=== PATIENT | male | born 1930 | race Caucasian/White ===

== ENCOUNTER → 2016-06-07 | Outpatient (CLI) | payer MEDICARE ==
[~2016-06-07] MED LIST: AUGM875T PO; BAYE325T; BAYE325T3 PO; CARV6.252 PO; CHOL1CHW5 CHEW; CITA20TA4 PO; CITA40TA4 PO; GLIM4TAB PO; LACTCAP8 PO; LANTUS2P SQ; LEVA500T PO; METF500T PO; NORC5TAB PO; OXYB5TAB33 PO; PROBCAP4 PO; SIMV40TA PO; SITA100 PO; SITA1TAB2 PO; VESI10TA PO; VITA200017 PO; Z.0.WALKERFRONT; ZOCO40TA PO
--- NOTE | 2016-06-07 11:07 | RADRPT ---
EXAM DATE/TIME: 06/07/2016 00:00 [facility] COMPARISON: No previous studies available for comparison. INDICATIONS : Dysphagia, aspiration FLUORO TIME: 3,0 minutes IMAGE COUNT: 0 CONTRAST: Dose as prescribed by speech pathologist. MEDICAL HISTORY : None. SURGICAL HISTORY : Pacemaker. CABG. ENCOUNTER: Initial ACUITY: 2 weeks PAIN SCORE: 0/10 LOCATION: Bilateral neck FINDINGS: A modified barium swallow was performed with speech pathology. Patient was given a variety of liquids to swallow. Normal bolus formation with slight delayed initiation of swallowing. No visualized aspiration. For a full detailed report, see report by the speech pathologist. CONCLUSION: See full speech pathologist report. No visualized aspiration.. Mariola Hodge MD on June 07, 2016 at 11:05 Board Certified Radiologist. This report was verified electronically.
== END ==
LOC: HRAD 09:51
PROVIDERS: ATTEND Family Medicine
DX: R13.10 Dysphagia, unspecified (principal)
CPT/HCPCS: 74230; G8996-GN; G8997-GN; G8998-GN

== ENCOUNTER 2016-07-27 13:15 | Emergency (ER) | payer MEDICARE ==
[~2016-07-27] VITALS: Ht 177.8 cm; Wt 79.0 kg
[~2016-07-27 13:15] MED LIST changes: -AUGM875T PO; -BAYE325T; -CHOL1CHW5 CHEW; -CITA40TA4 PO; -LACTCAP8 PO; -LANTUS2P SQ; -METF500T PO; -NORC5TAB PO; -SIMV40TA PO; -SITA1TAB2 PO; -VESI10TA PO
[2016-07-27 14:00] VITALS: BP 179/90; PULSE 70; RESP 18; TEMP 98.2; O2SAT 94
[2016-07-27] MEDS ORDERED: LACTCAP8 PO (14:07)
[2016-07-27] MEDS ORDERED: BAYE325T (14:07)
[2016-07-27] MEDS ORDERED: LANTUS2P SQ (14:07)
[2016-07-27] MEDS ORDERED: CITA40TA4 PO (14:07)
[2016-07-27] MEDS ORDERED: CHOL1CHW5 CHEW (14:07)
[2016-07-27] MEDS ORDERED: SITA1TAB2 PO (14:07)
[2016-07-27] MEDS ORDERED: CARV6.252 PO (14:07)
[2016-07-27] MEDS ORDERED: VESI10TA PO (14:07)
[2016-07-27] MEDS ORDERED: METF500T PO (14:07)
[2016-07-27] MEDS ORDERED: SIMV40TA PO (14:07)
--- NOTE | 2016-07-27 14:26 | PD ---
HPI . Facial injury Chief Complaint: Fall Time Seen by Provider: 14:20 Travel History International Travel<30 days: No Contact w/Intl Traveler<30days: No Traveled to known affect area: No History of Present Illness HPI Patient brought in by [facility] status post a trip and fall with an injury to his face. Daughter reports positive LOC. She states that he has been repeating the same questions over and over again. She states that his tetanus is up-to- date. She states that he did have epistaxis but that has resolved. She states that they found an injury to his left escobedo and they were taking his clothes off. Prior to that, he had not complained of any extremity pain. PFSH Past Medical History Asthma: No Blood Disorders: No Depression: Yes Heart Rhythm Problems: No Cancer: No Cardiovascular Problems: Yes (TRIPLE BYPASS) High Cholesterol: Yes Chest Pain: No Congestive Heart Failure: No COPD: No Cerebrovascular Accident: No Diabetes: Yes (insulin & Januvia at home) Patient Takes Glucophage: Yes Diminished Hearing: No Endocrine: Yes Gastrointestinal Disorders: No Genitourinary: Yes (urinary frequency) Hypertension: Yes Implanted Vascular Access Dvce: Yes Musculoskeletal: Yes Neurologic: Yes Psychiatric: Yes Reproductive: No Respiratory: No Seizures: Yes (an incident before ) Sleep Apnea: No Thyroid Disease: No Ulcer: No Past Surgical History Coronary Artery Bypass Graft: Yes (X3) Genitourinary Surgery: Yes (PROSTATE) Pacemaker: Yes (10/28/15) Other Surgery: Yes Social History Alcohol Use: Yes (2 GLASSES OF WINE DAILY ) Tobacco Use: No Substance Use: No Allergies-Medications (Allergen,Severity, Reaction): Coded Allergies: Cardizem (Verified Allergy, Unknown, 07/27/16) Reported Meds & Prescriptions Reported Meds & Active Scripts Active Reported Metformin (Metformin HCl) 500 Mg Tab 500 Mg PO BIDPC With meals [place] Aspirin (Aspirin) 325 Mg Tab Vitamin D3 (Cholecalciferol) 2,000 Unit Chew 2,000 Units CHEW DAILY Probiotic (Lactobacillus Acidophilus) 1 Cap Cap 1 Cap PO DAILY Simvastatin 40 Mg Tab 40 Mg PO HS Carvedilol 6.25 Mg Tab 6.25 Mg PO BID Januvia (Sitagliptin Phosphate) 100 Mg Tab 100 Mg PO DAILY Citalopram (Citalopram Hydrobromide) 40 Mg Tab 40 Mg PO DAILY Vesicare (Solifenacin) 10 Mg Tab 10 Mg PO DAILY Lantus Inj (Insulin Glargine) 1,000 Unit/10 Ml Vial 12 Units SQ HS Review of Systems Except as stated in HPI: all other systems reviewed are Neg Eyes: No: Blurred Vision HENT: No: Headaches, Lightheadedness Gastrointestinal: No: Nausea, Vomiting Musculoskeletal: No: Arthralgias, Limited ROM Skin: Positive Other (abrasion on the left escobedo. Laceration by the left thigh. ) Neurologic: No: Syncope, Focal Abnormalities Physical Exam Narrative GENERAL: Healthy-appearing older man in no acute distress. SKIN: Warm and dry. Laceration by the left eye. Abrasion on the left escobedo. HEAD: Left periorbital swelling. Normocephalic. EYES: Pupils equal and round. Extraocular movements are intact. ENT: Recent epistaxis but no active bleeding. The nose is not deformed. The nose is not tender. Mucous membranes pink and moist. NECK: Trachea midline. Neck is supple and nontender. CARDIOVASCULAR: Regular rate and rhythm. Heart sounds are normal. RESPIRATORY: No accessory muscle use. Lungs are clear with full air movement throughout. GASTROINTESTINAL: Abdomen soft, non-tender, nondistended. MUSCULOSKELETAL: No obvious deformities. No edema. NEUROLOGICAL: Awake and alert. No obvious cranial nerve deficits. Motor grossly within normal limits. Normal speech. PSYCHIATRIC: Appropriate mood and affect; insight and judgment normal. Data Data Last Documented VS Vital Signs Date Time Temp Pulse Resp B/P Pulse Ox O2 Delivery O2 Flow Rate FiO2 07/27/16 14:00 98.2 70 18 179/90 94 Orders Lidocai-Epi 1%-1:100,000 Inj (Xylocaine- (07/27/16 14:30) Ct Brain W/O Iv Contrast(Rout) (07/27/16 14:20) Ct Cerv Spine W/O Contrast (07/27/16 14:20) Ct Facial Bones W/O Iv Cont (07/27/16 14:20) Wound Care (07/27/16 14:21) MDM Medical Decision Making Medical Screen Exam Complete: Yes Emergency Medical Condition: Yes Differential Diagnosis My differential diagnosis of head trauma includes but is not limited to scalp contusion, concussion, intracerebral hemorrhage. Narrative Course Patient presents for evaluation of injury sustained in a fall. He has injuries to his face. He has symptoms consistent with concussion. Diagnosis Primary Impression: Facial bones, open fracture Qualified Code: S02.92XB - Open fracture of facial bone, unspecified facial bone, initial encounter Referrals: Jose Granger DMD 2 days Patient Instructions: Facial Fracture (DC), General Instructions Med/Other Pt SpecificInfo: Prescription(s) given Scripts Hydrocodone-Acetaminophen ([place])5-325 mg Tab1 Tab PO Q4H PRN (PAIN) #12 TAB Ref 0 Prov:Katie Sullivna MD 07/27/16 Amoxicillin-Clavulanate (Augmentin)875-125 mg Few093 Mg PO BID 10 Days Ref 0 not for use in CrCl <30 ml/min. Prov:Katie Sullivan MD 07/27/16 Disposition: 01 DISCHARGE HOME Condition: Stable Katie Sullivan MD Jul 27, 2016 14:26
[2016-07-27] MEDS ORDERED: LIDOCAINE 1%/EPINEPHrine 1:100,000 SOLN 20 ML VIAL INFIL ONE (14:30)
--- NOTE | 2016-07-27 14:38 | PD ---
Physical Exam Date Seen by Provider: Jul 27, 2016 Time Seen by Provider: 14:36 Narrative I was asked to see this patient for laceration to the left lateral eyebrow status post fall. Patient is 85, and tripped and fell on the street. Please see Dr. Guzman's note. Data Data Last Documented VS Vital Signs Date Time Temp Pulse Resp B/P Pulse Ox O2 Delivery O2 Flow Rate FiO2 07/27/16 14:00 98.2 70 18 179/90 94 Orders Lidocai-Epi 1%-1:100,000 Inj (Xylocaine- (07/27/16 14:30) Ct Brain W/O Iv Contrast(Rout) (07/27/16 14:20) Ct Cerv Spine W/O Contrast (07/27/16 14:20) Ct Facial Bones W/O Iv Cont (07/27/16 14:20) Wound Care (07/27/16 14:21) MDM Medical Record Reviewed: Yes Supervised Visit with HEIDI: Yes Differential Diagnosis Fall. Head injury. Laceration left eyebrow Procedures Procedure Narrative LACERATION LOCATION: Left lateral eyebrow. LENGTH: 4 cm NUMBER OF STITCHES/ONUR: 2 interrupted horizontal mattress REPAIR: The area of the laceration was prepped with Betadine and sterilely draped. The laceration was infiltrated with 3 mL was 1% lidocaine with epi. The wound was copiously irrigated and explored without evidence of foreign body , tendon injury or neurovascular injury. The wound was closed using 6-0 Prolene. This was a single layer repair. A sterile dressing was applied. The patient was advised to keep the dressing clean and dry. Patient tolerated the procedure well. Condition: Stable Denis Davis Jul 27, 2016 14:38
--- NOTE | 2016-07-27 14:58 | RADRPT ---
EXAM DATE/TIME: 07/27/2016 14:33 [facility] COMPARISON: CT BRAIN W/O CONTRAST, August 05, 2015, 9:41. INDICATIONS : Tripped and fell on concrete, left orbital contusion. RADIATION DOSE: 56.36 CTDIvol (mGy) MEDICAL HISTORY : Seizures. Hypertension. Diabetes SURGICAL HISTORY : CABG Pacemaker. ENCOUNTER: Initial ACUITY: 1 day PAIN SCALE: 2/10 LOCATION: cranial TECHNIQUE: Multiple contiguous axial images were obtained of the head. Using automated exposure control and adj ustment of the mA and/or kV according to patient size, radiation dose was kept as low as reasonably a chievable to obtain optimal diagnostic quality images. FINDINGS: CEREBRUM: There is mild cerebral atrophy. Mild periventricular white matter low-attenuation is present similar to the prior exam. No evidence of midline shift, mass lesion, hemorrhage or acute infarction. No ex tra-axial fluid collections are seen. POSTERIOR FOSSA: The cerebellum and brainstem demonstrate no acute finding. The 4th ventricle is midline. The cerebe llopontine angle is unremarkable. EXTRACRANIAL: There are blood products within the maxillary antra bilaterally and there are fractures of the left a nterior and posterior maxillary sinus and left zygomatic arch. Air is present within the left facial soft tissues. SKULL: The calvaria is intact. No evidence of skull fracture. CONCLUSION: 1. No acute intracranial abnormality is identified. There are stable chronic changes, as above. 2. There are fractures of the left maxillary sinus and blood products are present within the maxillar y sinuses bilaterally. Please refer to maxillofacial CT report for further description of these findi ngs. Christopher Bedoya MD on July 27, 2016 at 14:51 Board Certified Radiologist. This report was verified electronically.
--- NOTE | 2016-07-27 16:01 | RADRPT ---
EXAM DATE/TIME: 07/27/2016 14:33 [facility] COMPARISON: No previous studies available for comparison. INDICATIONS : Fell hit head on concrete,contusion left orbital contusion. RADIATION DOSE: 22.42 CTDIvol (mGy) MEDICAL HISTORY : Seizures. Hypertension. Diabetes SURGICAL HISTORY : CABG Pacemaker. ENCOUNTER: Initial ACUITY: 1 day PAIN SCALE: 2/10 LOCATION: neck TECHNIQUE: Volumetric scanning of the cervical spine was performed. Multiplanar reconstructions in the sagittal, coronal and oblique axial planes were performed. Using automated exposure control and adjustment o f the mA and/or kV according to patient size, radiation dose was kept as low as reasonably achievable to obtain optimal diagnostic quality images. FINDINGS: There is moderate degenerative disc disease and facet arthropathy. There is some ankylosis of the low er cervical spine from C4-C7. There is also at least partial fusion across the facet joints of the mi d and lower cervical spine. CONCLUSION: 1. No acute fracture. Partial ankylosis of the cervical spine. Oliver Kenny MD on July 27, 2016 at 15:53 Board Certified Radiologist. This report was verified electronically.
--- NOTE | 2016-07-27 16:08 | RADRPT ---
EXAM DATE/TIME: 07/27/2016 14:33 [facility] COMPARISON: No previous studies available for comparison. INDICATIONS : Tripped fell on concrete,left orbital contusion. RADIATION DOSE: 21.96 CTDIvol (mGy) MEDICAL HISTORY : Seizures. Hypertension. Diabetes SURGICAL HISTORY : CABG Pacemaker. ENCOUNTER: Initial ACUITY: 1 day PAIN SCORE: 2/10 LOCATION: facial TECHNIQUE: Volumetric scanning of the facial bones was performed. Using automated exposure control and adjustme nt of the mA and/or kV according to patient size, radiation dose was kept as low as reasonably achiev able to obtain optimal diagnostic quality images. FINDINGS: There are fractures through the anterior and posterior wall of the left maxillary sinus and left zygo matic arch. There is a nondisplaced orbital floor fracture with a small amount of air in the inferior left orbit. There is periorbital soft tissue swelling. Globes are intact. There is fluid and/or hemo rrhage in maxillary sinuses. No other fractures are identified. CONCLUSION: 1. Multiple fractures of the left maxillary sinus and left orbital floor with some air in the left or bit. There is also fairly extensive air in soft tissues of left face as well as left-sided facial and periorbital soft tissue swelling. Fluid present in both maxillary sinuses. 2. Left zygomatic arch fracture. Oliver Kenny MD on July 27, 2016 at 16:00 Board Certified Radiologist. This report was verified electronically.
[2016-07-27] MEDS ORDERED: AUGM875T PO (16:15)
[2016-07-27] MEDS ORDERED: NORC5TAB PO (16:15)
== END 2016-07-27 17:02 | disposition home or self-care (01) ==
LOC: NEPA 13:15
DX: S02.40DA Maxillary fracture, left side, initial encounter for closed fracture (principal); S02.40FA Zygomatic fracture, left side, initial encounter for closed fracture; S01.112A Laceration without foreign body of left eyelid and periocular area, initial encounter; I10 Essential (primary) hypertension; E11.9 Type 2 diabetes mellitus without complications; W22.8XXA Striking against or struck by other objects, initial encounter; Y92.009 Unspecified place in unspecified non-institutional (private) residence as the place of occurrence of the external cause; Z79.4 Long term (current) use of insulin
CPT/HCPCS: 12013; 70450; 70486; 72125

== ENCOUNTER → 2016-08-21 | Outpatient (CLI) | payer MEDICARE ==
[~2016-08-21] MED LIST changes: +AUGM875T PO; +BAYE325T; -BAYE325T3 PO; +CHOL1CHW5 CHEW; -CITA20TA4 PO; +CITA40TA4 PO; -GLIM4TAB PO; +LACTCAP8 PO; +LANTUS2P SQ; -LEVA500T PO; +METF500T PO; +NORC5TAB PO; -OXYB5TAB33 PO; -PROBCAP4 PO; +SIMV40TA PO; -SITA100 PO; +SITA1TAB2 PO; +VESI10TA PO; -VITA200017 PO; -Z.0.WALKERFRONT; -ZOCO40TA PO
[2016-08-21 09:43] LABS: AUTOMATED NEUTROPHIL # 6.5 TH/MM3 (1.8-7.7); BASOPHIL # 0.1 TH/MM3 (0-0.2); BASOPHIL % 0.8 % (0.0-2.0); EOSINOPHIL # 0.3 TH/MM3 (0-0.4); EOSINOPHIL % 3.2 % (0.0-4.0); HEMATOCRIT 39.6 % (39.0-51.0); HEMO FLAGS DIFF FINAL; LYMPH % 13.2 % (9.0-44.0); LYMPHOCYTE # 1.2 TH/MM3 (1.0-4.8); MEAN CELL VOLUME 84.2 FL (80.0-100.0); MEAN CORPUSCULAR HGB CONC 33.2 % (32.0-36.0); MONO % 9.6 % (0.0-8.0); NEUT % 73.2 % (16.0-70.0); PLATELET COUNT 269 TH/MM3 (150-450); RED CELL DISTRIBUTION WIDTH 14.2 % (11.6-17.2); WHITE BLOOD COUNT 8.8 TH/MM3 (4.0-11.0)
[2016-08-21 10:11] LABS: HEMOGLOBIN A1a 1.2 %; HEMOGLOBIN A1b 2.3 %; HEMOGLOBIN Ao 82.2 %; HEMOGLOBIN LA1C 1.8 %; HEMOGLOBIN P3 4.1 %
[2016-08-21 10:26] LABS: ALKALINE PHOSPHATASE 131 U/L (45-117); ALT (GPT) 22 U/L (12-78); ANION GAP 9 MEQ/L (5-15); AST (GOT) 21 U/L (15-37); BICARBONATE 27.4 MEQ/L (21.0-32.0); BLOOD UREA NITROGEN 13 MG/DL (7-18); CHLORIDE 104 MEQ/L (98-107); GLOMERULAR FILTRATION RATE 94 ML/MIN (>89); GLUCOSE,FASTING 92 MG/DL (74-99); LDL CHOLESTEROL 36 MG/DL (0-99); SODIUM (NA) 140 MEQ/L (136-145); TOTAL BILIRUBIN ADULT 0.7 MG/DL (0.2-1.0)
== END ==
LOC: PLAB 07:46
PROVIDERS: ATTEND Family Medicine
DX: I25.10 Atherosclerotic heart disease of native coronary artery without angina pectoris (principal); E11.65 Type 2 diabetes mellitus with hyperglycemia; E78.2 Mixed hyperlipidemia; I10 Essential (primary) hypertension
CPT/HCPCS: 36415; 80053; 80061; 82306; 83036; 85025

== ENCOUNTER → 2017-02-21 | Outpatient (CLI) | payer MEDICARE ==
[2017-02-21 13:29] LABS: AUTOMATED NEUTROPHIL # 7.1 TH/MM3 (1.8-7.7); BASOPHIL # 0.1 TH/MM3 (0-0.2); BASOPHIL % 0.8 % (0.0-2.0); EOSINOPHIL # 0.3 TH/MM3 (0-0.4); EOSINOPHIL % 3.5 % (0.0-4.0); HEMATOCRIT 39.4 % (39.0-51.0); HEMO FLAGS DIFF FINAL; LYMPH % 11.8 % (9.0-44.0); LYMPHOCYTE # 1.1 TH/MM3 (1.0-4.8); MEAN CELL VOLUME 84.7 FL (80.0-100.0); MEAN CORPUSCULAR HEMOGLOBIN 28.1 PG (27.0-34.0); MEAN CORPUSCULAR HGB CONC 33.1 % (32.0-36.0); MONO % 9.6 % (0.0-8.0); NEUT % 74.3 % (16.0-70.0); PLATELET COUNT 240 TH/MM3 (150-450); RED BLOOD COUNT 4.65 MIL/MM3 (4.50-5.90); RED CELL DISTRIBUTION WIDTH 14.5 % (11.6-17.2); WHITE BLOOD COUNT 9.6 TH/MM3 (4.0-11.0)
[2017-02-21 13:31] LABS: ANION GAP 8 MEQ/L (5-15); AST (GOT) 16 U/L (15-37); BICARBONATE 27.4 MEQ/L (21.0-32.0); BLOOD UREA NITROGEN 17 MG/DL (7-18); CHLORIDE 103 MEQ/L (98-107); GLOMERULAR FILTRATION RATE 85 ML/MIN (>89); GLUCOSE,FASTING 127 MG/DL (74-99); POTASSIUM 3.9 MEQ/L (3.5-5.1); SODIUM (NA) 138 MEQ/L (136-145)
[2017-02-21 13:35] LABS: ALKALINE PHOSPHATASE 104 U/L (45-117); ALT (GPT) 18 U/L (12-78); HDL CHOLESTEROL 46.3 MG/DL (40.0-60.0); LDL CHOLESTEROL 37 MG/DL (0-99); TOTAL BILIRUBIN ADULT 0.6 MG/DL (0.2-1.0)
[2017-02-21 17:18] LABS: HEMOGLOBIN A1a 1.2 %; HEMOGLOBIN A1b 2.4 %; HEMOGLOBIN Ao 80.9 %; HEMOGLOBIN LA1C 2.3 %; HEMOGLOBIN P3 6.3 %
== END ==
LOC: PLAB 08:33
PROVIDERS: ATTEND Family Medicine
DX: E11.9 Type 2 diabetes mellitus without complications (principal); I10 Essential (primary) hypertension; E78.2 Mixed hyperlipidemia
CPT/HCPCS: 36415; 80053; 80061; 83036; 85025

== ENCOUNTER → 2017-10-08 | Outpatient (CLI) | payer MEDICARE ==
[~2017-10-08] MED LIST changes: -VESI10TA PO; +VESI10TA2 PO
[2017-10-08 10:52] LABS: ALBUMIN 3.3 GM/DL (3.4-5.0); AST (GOT) 23 U/L (15-37); BICARBONATE 25.5 MEQ/L (21.0-32.0); BLOOD UREA NITROGEN 18 MG/DL (7-18); CALCIUM 9.1 MG/DL (8.5-10.1); CHLORIDE 105 MEQ/L (98-107); CREATININE 0.87 MG/DL (0.60-1.30); GLOMERULAR FILTRATION RATE 83 ML/MIN (>89); GLUCOSE,FASTING 123 MG/DL (74-99); SODIUM (NA) 140 MEQ/L (136-145)
[2017-10-08 10:56] LABS: ALKALINE PHOSPHATASE 103 U/L (45-117); ALT (GPT) 27 U/L (12-78); CHOLESTEROL 99 MG/DL (120-200); CHOLESTEROL/ HDL RATIO 1.96 RATIO; HDL CHOLESTEROL 50.4 MG/DL (40.0-60.0); LDL CHOLESTEROL 35 MG/DL (0-99); TOTAL BILIRUBIN ADULT 0.7 MG/DL (0.2-1.0); TRIGLYCERIDES 66 MG/DL (42-150)
[2017-10-08 16:23] LABS: HEMOGLOBIN A1C 7.4 % (4.3-6.0)
== END ==
LOC: PLAB 08:27
PROVIDERS: ATTEND Family Medicine
DX: I10 Essential (primary) hypertension (principal); E11.65 Type 2 diabetes mellitus with hyperglycemia; E78.2 Mixed hyperlipidemia
CPT/HCPCS: 36415; 80053; 80061; 83036